=== PATIENT | male | born 1990 | race Native Hawaiian/Other Pacific Islander ===

== ENCOUNTER 2023-01-16 15:41 | Outpatient (CLI) | payer OTHER ==
[2023-01-16 16:00] LABS: PLATELET COUNT 247 K/uL (142-355)
[2023-01-16 16:09] LABS: POTASSIUM 3.8 mmol/L (3.6-5.2)
== END 2023-01-16 19:02 | disposition home or self-care (01) ==
LOC: RESP 15:41
PROVIDERS: ATTEND Nurse Practitioner Family
DX: I10 Essential (primary) hypertension (principal)
CPT/HCPCS: 36415; 80053; 82550; 82553; 84484; 85027; 93005